=== PATIENT | male | born 1970 | race Caucasian/White ===

== ENCOUNTER 2019-02-20 06:20 | Day surgery (SDC) | payer MEDICAID ==
[2019-02-20] MEDS ORDERED: Dextrose 5%-Lactated Ringers 1,000 ML IV SCH (06:45)
[2019-02-20] MEDS ORDERED: Propofol 200 MG/20 ML SDV ONE (07:49)
[2019-02-20] MEDS ORDERED: Midazolam 1 MG/ML 2 ML SDV ONE (07:49)
[2019-02-20] MEDS ORDERED: fentaNYL 100 MCG/2 ML SDV ONE (07:49)
--- NOTE | 2019-02-27 14:55 | OR ---
DATE OF PROCEDURE: 02/20/2019 SURGEON: Lenin Borges MD PREOPERATIVE DIAGNOSIS: Indications for screening colonoscopy. POSTOPERATIVE DIAGNOSIS: Normal colonoscopic examination. OPERATIVE PROCEDURE: Flexible colonoscopy. ANESTHESIA: IV sedation. INDICATION FOR PROCEDURE: This is a 48-year-old male presenting with plan for screening colonoscopy as neither family or personal history of colonic neoplasia. Plan is to proceed with a flexible colonoscopy with biopsies and/or polypectomy as indicated. Potential risks including bleeding and perforation were discussed, and the patient wishes to proceed. DETAILS OF PROCEDURE: The patient was taken to the operating room and placed in a left lateral decubitus position. IV sedation was administered after which the initial digital rectal exam was performed and was unremarkable. The colonoscope was then passed into the level of the rectum with retroflexion revealing uncomplicated hemorrhoidal columns. The scope was then eventually passed to the cecum. The prep was fairly good with only a small amount of liquid stool present. To that level, no areas of colitis, no areas of diverticular disease, no polyps or other signs of neoplasia were seen. The scope was then withdrawn and the above findings reconfirmed and the procedure then concluded. There were no evident complications. The next colonoscopy in this case should be in 10 years unless any recurrent findings and indicated need for earlier exam. Lenin Borges MD Job #: [id number]
== END 2019-02-20 09:13 | disposition home or self-care (01) ==
LOC: JP.SDS 06:20
PROVIDERS: ATTEND Surgery
DX: Z12.11 Encounter for screening for malignant neoplasm of colon (principal); K64.8 Other hemorrhoids; M48.00 Spinal stenosis, site unspecified
CPT/HCPCS: 45378; J2250; J2704; J3010; J7042